=== PATIENT | female | born 1990 | race American Indian/Alaskan Native ===

== ENCOUNTER 2017-02-15 09:37 | Emergency (ER) | payer MEDICAID ==
[2017-02-15 10:20] LABS: Basophils % (Auto) 0.9 % (0.0-1.8); Eosinophils % (Auto) 2.3 % (0.0-4.3); Hematocrit 31.9 % (30.3-42.9); Hemoglobin 10.5 gm/dl (10.1-14.3); Mean Corpuscular HGB Conc 33 % (30-34); Mean Corpuscular Hemoglobin 29 pg (28-32); Mean Corpuscular Volume 88 fl (79-97); Platelet Count 350 K/mm3 (140-440); Red Blood Count 3.64 M/mm3 (3.65-5.03); Red Cell Distribution Width 14.1 % (13.2-15.2)
[2017-02-15 10:32] LABS: Bilirubin,Urine NEG (Negative); Blood,Urine MOD (Negative); Ketones,Urine NEG (Negative); Leukocyte Esterase,Urine TR (Negative); Mucus,Urine FEW /HPF; Nitrite,Urine NEG (Negative); Protein,Urine <15 mg/dL mg/dL (Negative); Urobilinogen,Urine < 2.0 mg/dL (<2.0)
--- NOTE | 2017-02-15 11:31 | Emergency Department Report ---
ED HPI - General Chief complaint: Vaginal Bleeding Stated complaint: BLEEDING/PREG Time Seen by Provider: 02/15/17 11:20 Source: patient Mode of arrival: Ambulatory Limitations: No Limitations - History of Present Illness Initial comments: 26-year-old female presents to the emergency department complaining of vaginal bleeding. Patient states that approximate one month ago she did home test was positive. Yesterday, she began having some vaginal spotting. She states that she has passed one small clot yesterday. She denies abdominal pain , nausea, or vomiting. There are no other complaints. MD Complaint: vaginal bleeding -: Gradual, days(s) (1) Severity: mild Consistency: intermittent Improves with: none Worsens with: none Associated symptoms: denies other symptoms :: Yes OB History - Current : no complications OB History - Previous Pregnancies: no complications Pre- care: none - Related Data : 3 Para: 1 Ab: 1 (elective) Home Medications Medication Instructions Recorded Confirmed Last Taken No Known Home Medications [No 02/15/17 02/15/17 Unknown Reported Home Medications] Allergies Allergy/AdvReac Type Severity Reaction Status Date / Time No Known Allergies Allergy Unverified 02/15/17 09:53 ED Review of Systems ROS: Stated complaint: BLEEDING/PREG Other details as noted in HPI Comment: All other systems reviewed and negative Genitourinary: as per HPI, abnormal menses ED Past Medical Hx - Past Medical History Previous Medical History?: Yes Additional medical history: HERPES - Surgical History Past Surgical History?: No - Family History Family history: no significant - Social History Smoking Status: Never Smoker Substance Use Type: None - Medications Home Medications: Home Medications Medication Instructions Recorded Confirmed Last Taken Type No Known Home Medications [No 02/15/17 02/15/17 Unknown History Reported Home Medications] ED Physical Exam - General Limitations: No Limitations General appearance: alert, in no apparent distress - Head Head exam: Present: atraumatic, normocephalic - Eye Eye exam: Present: normal appearance, PERRL, EOMI - ENT ENT exam: Present: normal exam, normal orophraynx, mucous membranes moist - Neck Neck exam: Present: normal inspection, full ROM. Absent: tenderness - Respiratory Respiratory exam: Present: normal lung sounds bilaterally. Absent: respiratory distress - Cardiovascular Cardiovascular Exam: Present: regular rate, normal rhythm, normal heart sounds - GI/Abdominal GI/Abdominal exam: Present: soft, normal bowel sounds. Absent: distended, tenderness - Extremities Exam Extremities exam: Present: normal inspection, full ROM. Absent: tenderness - Back Exam Back exam: Present: normal inspection, full ROM. Absent: tenderness - Neurological Exam Neurological exam: Present: alert, oriented X3. Absent: motor sensory deficit - Skin Skin exam: Present: warm, dry, intact ED Course Vital Signs 02/15/17 02/15/17 02/15/17 09:45 11:24 11:30 Temperature 98.3 F 98.4 F Pulse Rate 96 H 81 Respiratory 18 18 18 Rate Blood Pressure 119/79 Blood Pressure 120/79 [Right] O2 Sat by Pulse 100 100 99 Oximetry 02/15/17 12:17 Temperature Pulse Rate Respiratory Rate Blood Pressure 107/68 Blood Pressure [Right] O2 Sat by Pulse 98 Oximetry ED Medical Decision Making - Lab Data Result diagrams: 02/15/17 10:01 - Radiology Data Radiology results: report reviewed Pelvic ultrasound reveals an abnormal gestational sac within the uterine cavity with no evidence of pole. - Medical Decision Making Lab and imaging results reviewed and discussed with the patient. Patient will be discharged home at this time to follow up with HIGH SPEED PRINTER OPERATOR for repeat hCG testing and possible ultrasound. - Differential Diagnosis spontaneous miscarriage, ectopic , bleeding in Critical care attestation.: If time is entered above; I have spent that time in minutes in the direct care of this critically ill patient, excluding procedure time. ED Disposition Clinical Impression: Spontaneous Disposition: DISCHARGED TO HOME OR SELFCARE Is pt being admited?: No Condition: Stable Instructions: Spontaneous Miscarriage (ED) Referrals: DORA DOYLE MD [Staff Physician] - 3-5 Days Time of Disposition: 13:20
[2017-02-15 12:22] VITALS: BP 107/68
--- NOTE | 2017-02-15 12:48 | Ultrasound Report ---
ULTRASOUND OB LESS THAN 14 WEEKS - TRANSABDOMINAL AND TRANSVAGINAL INDICATION: Vaginal bleeding and . Serum beta-hCG of 8793 units. COMPARISON: None similar at this institution. FINDINGS: Transabdominal and transvaginal pelvic sonography performed in this patient with LMP of 12/22/2016 and estimated menstrual age of 7 weeks and 6 days. An anteverted 8.6 x 5.6 x 6 cm uterus demonstrates complex endometrial canal fluid/abnormal gestational sac, estimated at 3.5 x 1.5 x 2.1 cm with low-lying echoes, endovaginal image 14, amongst others, estimated at 8 weeks and 5 days. No definite pole or a normal yolk sac seen. Small pelvic free fluid. Right ovary measures 4 x 2.9 x 2.2 cm with an approximately 2.7 x 1.7 cm complex cyst/corpus luteum, endovaginal image 23. Unremarkable left ovary measures 2.7 x 1.9 x 2.1 cm. CONCLUSION: 1. No sonographic evidence of a viable intrauterine gestation at this time with complex endometrial canal fluid/abnormal gestational sac noted, as described. 2. Both ovaries identified, as above. ELECTRICAL CONTROLS ASSEMBLER correlation suggested. Thank you for the opportunity to participate in this patient's care.
--- NOTE | 2017-02-15 12:48 | Ultrasound Report ---
ULTRASOUND OB LESS THAN 14 WEEKS - TRANSABDOMINAL AND TRANSVAGINAL INDICATION: Vaginal bleeding and . Serum beta-hCG of 8793 units. COMPARISON: None similar at this institution. FINDINGS: Transabdominal and transvaginal pelvic sonography performed in this patient with LMP of 12/22/2016 and estimated menstrual age of 7 weeks and 6 days. An anteverted 8.6 x 5.6 x 6 cm uterus demonstrates complex endometrial canal fluid/abnormal gestational sac, estimated at 3.5 x 1.5 x 2.1 cm with low-lying echoes, endovaginal image 14, amongst others, estimated at 8 weeks and 5 days. No definite pole or a normal yolk sac seen. Small pelvic free fluid. Right ovary measures 4 x 2.9 x 2.2 cm with an approximately 2.7 x 1.7 cm complex cyst/corpus luteum, endovaginal image 23. Unremarkable left ovary measures 2.7 x 1.9 x 2.1 cm. CONCLUSION: 1. No sonographic evidence of a viable intrauterine gestation at this time with complex endometrial canal fluid/abnormal gestational sac noted, as described. 2. Both ovaries identified, as above. LEAD JAVA SOFTWARE ENGINEER correlation suggested. Thank you for the opportunity to participate in this patient's care.
== END 2017-02-15 13:46 | disposition home or self-care (01) ==
LOC: ED 09:37
DX: O03.9 Complete or unspecified spontaneous abortion without complication (principal); Z3A.00 Weeks of gestation of pregnancy not specified; O02.81 Inappropriate change in quantitative human chorionic gonadotropin (hCG) in early pregnancy
CPT/HCPCS: 36415; 76801; 76817; 81001; 84702; 85025; 86850; 86900; 86901